=== PATIENT | female | born 1955 | race Caucasian/White ===

== ENCOUNTER 2016-10-18 11:40 | Emergency (ER) | payer MEDICAID ==
[~2016-10-18] VITALS: Ht 162.6 cm; Wt 70.8 kg
[2016-10-18 11:56] VITALS: BP 146/104
== END 2016-10-18 13:08 | disposition home or self-care (01) ==
LOC: ED 11:40
DX: R21 Rash and other nonspecific skin eruption (principal); I10 Essential (primary) hypertension; Z90.49 Acquired absence of other specified parts of digestive tract; Z90.710 Acquired absence of both cervix and uterus; Z90.89 Acquired absence of other organs